=== PATIENT | male | born 1995 | race Caucasian/White ===

== ENCOUNTER 2022-11-16 06:28 | Outpatient (CLI) | payer BC, SELFPAY | END 2022-11-16 06:29 | disposition home or self-care (01) | LOC: SOT 06:29 | PROVIDERS: Family Provider Family Medicine; Visit Provider Orthopaedic Surgery | DX: S62.308A Unspecified fracture of other metacarpal bone, initial encounter for closed fracture (principal); X58.XXXA Exposure to other specified factors, initial encounter | CPT/HCPCS: L3982 ==

== ENCOUNTER → 2022-12-14 08:15 | Outpatient (BNVA) | payer BC, SELFPAY | PROVIDERS: Family Provider Family Medicine; Visit Provider Nurse Practitioner Family | DX: S62.306A Unspecified fracture of fifth metacarpal bone, right hand, initial encounter for closed fracture; X58.XXXA Exposure to other specified factors, initial encounter | CPT/HCPCS: 73130 ==

== ENCOUNTER → 2024-09-01 11:24 | Outpatient (BNVA) | payer SELFPAY | PROVIDERS: Family Provider Nurse Practitioner; PCP Nurse Practitioner; Visit Provider Nurse Practitioner | DX: S46.911A Strain of unspecified muscle, fascia and tendon at shoulder and upper arm level, right arm, initial encounter (principal); X58.XXXA Exposure to other specified factors, initial encounter | CPT/HCPCS: 73030 ==